=== PATIENT | male | born 1950 | race African-American/Black ===

== ENCOUNTER 2016-11-11 16:03 | Emergency (ER) | payer OTHER ==
[~2016-11-11] VITALS: Ht 175.3 cm; Wt 76.0 kg
[~2016-11-11 16:03] MED LIST: ASPI81 PO; CARV6.25 PO; EFFIENT PO; MOBI15TA PO; NAPR550 PO; NITR0.4S SL; PROT40TA PO; TRAM50 PO; ZOCO10TA PO
[2016-11-11 16:05] VITALS: BP 201/102; PULSE 74; RESP 16; TEMP 98.4; O2SAT 99
[2016-11-11] MEDS ORDERED: PANT20 PO (16:32)
[2016-11-11] MEDS ORDERED: AMLO10TA2 PO (16:32)
[2016-11-11] MEDS ORDERED: SIMV5TAB3 PO (16:32)
[2016-11-11] MEDS ORDERED: ASPI81CH CHEW (16:32)
[2016-11-11] MEDS ORDERED: ORPHENADRINE INJ 60 MG/2 ML AMP IM ONE (16:45)
[2016-11-11] MEDS ORDERED: KETOROLAC TROMETHAMINE 60 MG/2 ML (IM) VIAL IM ONE (16:45)
--- NOTE | 2016-11-11 16:45 | PD ---
HPI Chief Complaint: Pain: Acute or Chronic Time Seen by Provider: 16:30 Travel History International Travel<30 days: No Contact w/Intl Traveler<30days: No Traveled to known affect area: No History of Present Illness HPI This is a 66-year-old male who presents to the emergency department with right scapular pain, worse with lifting up his right arm, constant since yesterday around noon. He denies any associated numbness or weakness. He doesn't recall any injuries to the arm. He denies any chest pain or trouble breathing. PFSH Past Medical History Asthma: No Cardiac Catheterization: Yes (S/P IA WITH STENT PLACEMENT TO RAC ON 05/21/08 AT [facility]) Cardiovascular Problems: Yes (STENT IN 2008) COPD: No Hypertension: Yes Social History Alcohol Use: No Tobacco Use: Yes Substance Use: No Allergies-Medications (Allergen,Severity, Reaction): Coded Allergies: Morphine (Unverified Allergy, Mild, 11/11/16) Reported Meds & Prescriptions Reported Meds & Active Scripts Active Flexeril (Cyclobenzaprine HCl) 5 Mg Tab 5 Mg PO TID PRN Naproxen 500 Mg Tab 500 Mg PO BID PRN Reported Protonix (Pantoprazole Sodium) 20 Mg Tab 20 Mg PO DAILY Simvastatin 5 Mg Tab 5 Mg PO DAILY Amlodipine (Amlodipine Besylate) 10 Mg Tab 10 Mg PO DAILY Aspirin 81 Mg Chew 81 Mg CHEW DAILY Review of Systems Except as stated in HPI: all other systems reviewed are Neg Physical Exam Narrative GENERAL:Well appearing, no acute distress SKIN: Focused skin assessment warm and dry. HEAD: Atraumatic. Normocephalic. EYES: Pupils equal and round. No injection or drainage. ENT: Moist mucous membranes NECK: Trachea midline. CARDIOVASCULAR: Regular rate and rhythm. No murmur appreciated. RESPIRATORY: Clear to auscultation. Breath sounds equal bilaterally. GASTROINTESTINAL: Abdomen soft, non-tender, nondistended. MUSCULOSKELETAL: Tender to palpation over the right trapezius and scapula with pain with internal rotation of the right shoulder. NEUROLOGICAL: Awake and alert. No obvious cranial nerve deficits. Moving all extremities. PSYCHIATRIC: Appropriate mood and affect; insight and judgment normal. Data Data Last Documented VS Vital Signs Date Time Temp Pulse Resp B/P Pulse Ox O2 Delivery O2 Flow Rate FiO2 11/11/16 16:58 18 11/11/16 16:05 98.4 74 201/102 99 Orders Shoulder, Complete (>2vws) (11/11/16 ) Ketorolac Inj (Toradol Inj) (11/11/16 16:45) Orphenadrine Inj (Norflex Inj) (11/11/16 16:45) MDM Medical Decision Making Medical Screen Exam Complete: Yes Emergency Medical Condition: Yes Interpretation(s) afebrile, no tachycardia, hypertensive xray shoulder: no acute process Differential Diagnosis Rotator cuff sprain, osteoarthritis, bursitis Narrative Course This is a 66-year-old male who presents to the emergency department with shoulder pain. It started yesterday. It's purely musculoskeletal on exam and is reproducible with internal rotation of the right shoulder. I suspect he has a rotator cuff sprain. I've no suspicion for myocardial infarction. He has no abdominal pain to suggest biliary pathology. He was given anti-inflammatories and muscle relaxers and his symptoms improved. I think he can be discharged with the same and follow-up with orthopedics as needed as an outpatient. Diagnosis Primary Impression: Shoulder pain Qualified Code: M25.511 - Acute pain of right shoulder Patient Instructions: General Instructions Additional Instructions: If you develop fever, severe pain, numbness or weakness return to the emergency room. Follow-up with orthopedics in one week if your symptoms aren't improved. Med/Other Pt SpecificInfo: Prescription(s) given Scripts Cyclobenzaprine (Flexeril)5 Mg Tab5 Mg PO TID PRN (SPASM) #14 TAB Ref 0 Prov:Denisse Gipson MD 11/11/16 Naproxen 500 Mg Mly045 Mg PO BID PRN (PAIN SCALE 4 TO 10) #10 TAB Ref 0 Prov:Denisse Gipson MD 11/11/16 Disposition: 01 DISCHARGE HOME Condition: Stable Denisse Gipson MD Nov 11, 2016 16:45
--- NOTE | 2016-11-11 17:02 | RADRPT ---
EXAM DATE/TIME: 11/11/2016 16:51 [place] COMPARISON: No previous studies available for comparison. INDICATIONS : Shoulder pain. MEDICAL HISTORY : None. SURGICAL HISTORY : None. ENCOUNTER: Initial ACUITY: 1 day PAIN SCORE: 0/10 LOCATION: Right shoulder FINDINGS: Multiple view examination of the right shoulder demonstrates no evidence of fracture or dislocation. The glenohumeral and acromioclavicular joints are maintained. There is normal range of motion betwe en internal and external rotation. Bony mineralization is normal. CONCLUSION: Unremarkable examination of the right shoulder. Robert Jimenez MD on November 11, 2016 at 16:58 Board Certified Radiologist. This report was verified electronically.
[2016-11-11] MEDS ORDERED: CYCL5TAB PO (17:12)
[2016-11-11] MEDS ORDERED: NAPR500T PO (17:12)
== END 2016-11-11 17:33 | disposition home or self-care (01) ==
LOC: NEPE 16:03
DX: M25.511 Pain in right shoulder (principal); I10 Essential (primary) hypertension; I25.2 Old myocardial infarction; Z95.5 Presence of coronary angioplasty implant and graft; Z72.0 Tobacco use
CPT/HCPCS: 73030; 96372; 99284; J1885; J2360